=== PATIENT | female | born 1995 | race Caucasian/White ===

== ENCOUNTER 2021-07-25 01:47 | Inpatient (IN) | payer OTHER ==
[~2021-07-25] VITALS: Ht 162.6 cm; Wt 75.7 kg
[~2021-07-25 01:47] MED LIST: CLARITIN10 MG PO
[2021-07-25 02:25] LABS: AMPHETAMINES NEGATIVE (NEGATIVE); BARBITURATES NEGATIVE (NEGATIVE); ECSTASY (MDMA) NEGATIVE (NEGATIVE); MARIJUANA (THC) NEGATIVE (NEGATIVE); METHADONE NEGATIVE (NEGATIVE); OPIATES NEGATIVE (NEGATIVE); OXYCODONE NEGATIVE (NEGATIVE)
[2021-07-25 02:26] LABS: BILIRUBIN NEGATIVE (NEGATIVE); BLOOD TRACE-INTACT Ery/uL (NEGATIVE); CLARITY CLEAR (CLEAR); COLOR YELLOW (YELLOW); GLUCOSE (U) NORMAL (NORMAL); LEUKOCYTES NEGATIVE Leu/uL (NEGATIVE); NITRITE NEGATIVE (NEGATIVE); PROTEIN NEGATIVE (NEGATIVE); UROBILINOGEN 0.2 mg/dL (0.2-1.0)
[2021-07-25 02:31] LABS: BACTERIA TRACE; URINARY WBC RARE
[2021-07-25 02:58] LABS: HCT 36.3 % (37.0-47.0); HGB 12.3 g/dl (12.5-16.0); MCH 29.1 pg (25.0-31.0); MCHC 33.9 g/dL (32.0-36.0); MPV 9.3 fL (6.0-9.5); RBC 4.22 M/uL (4.20-5.40); RDW 12.9 % (11.5-14.0); WBC 13.17 K/uL (4.0-10.5)
== END 2021-07-27 09:53 | disposition home or self-care (01) | DRG 806 ==
LOC: FOD 01:47 → FOB 01:47 → FOD 02:38 → FOB 02:38
PROVIDERS: ADMIT Obstetrics & Gynecology
PROC: 10E0XZZ Delivery of Products of Conception, External Approach (ICD-10-PCS; principal; 2021-07-25)
PROC: 3E0R3GC Introduction of Other Therapeutic Substance into Spinal Canal, Percutaneous Approach (ICD-10-PCS; 2021-07-26)
PROC: 3E0134Z Introduction of Serum, Toxoid and Vaccine into Subcutaneous Tissue, Percutaneous Approach (ICD-10-PCS; 2021-07-27)
DX: O42.02 Full-term premature rupture of membranes, onset of labor within 24 hours of rupture (principal); D62 Acute posthemorrhagic anemia; Z37.0 Single live birth; Z3A.39 39 weeks gestation of pregnancy; O89.4 Spinal and epidural anesthesia-induced headache during the puerperium; Z23 Encounter for immunization; O99.334 Smoking (tobacco) complicating childbirth; F17.200 Nicotine dependence, unspecified, uncomplicated; O70.0 First degree perineal laceration during delivery; O90.81 Anemia of the puerperium; Z67.41 Type O blood, Rh negative
CPT/HCPCS: 36415; 80305; 81001; 84112; 85014; 85018; 86850; 86900; 86901; J7120